=== PATIENT | female | born 2005 | race Caucasian/White ===

== ENCOUNTER 2025-01-24 04:02 | Emergency (ER) | payer OTHER, SELFPAY ==
[2025-01-24 04:03] VITALS: BP 123/89; PULSE 71; RESP 18; TEMP 36.7; O2SAT 97; BMI 20.9
--- NOTE | 2025-01-24 04:28 | EDNOTE_ITS ---
<Statement entered by Noris Munoz MD - 01/24/25 18:39> As co-signing physician, I was present and available for consult prn. I concur with the plan and care as documented by the midlevel provider. Nausea/Vomit./Diarrhea-RME/HPI General Chief complaint: General Adult/Misc Complain Stated complaint: BODYACHES, VOMITING Z2CORIS Time Seen by Provider: 01/24/25 04:25 Arrival date/time: 01/24/25 04:02 19F with history of fibromyalgia, Ariana-Danlos, and POTS presents to ED with several hours of heart palps, not feeling well, and some N/V. Patient denies URI symptoms. Limitations: no limitations Related Data Allergies Allergy/AdvReac Type Severity Reaction Status Date / Time No Known Allergies Allergy Verified 01/24/25 04:04 Review of Systems Review of Systems Systems Reviewed: All systems reviewed, normal except as documented Constitutional Constitutional: Reports system reviewed and no additional complaints, except as documented, Denies fever(s) and Denies headache(s) ENT Ears, Nose, Mouth, and Throat: Denies disequilibrium and Denies headache(s) Cardiovascular Cardiovascular: Reports system reviewed and no additional complaints, except as documented, Reports as per HPI, Denies chest pain, Denies dyspnea and Reports palpitations Respiratory Respiratory: Reports system reviewed and no additional complaints, except as documented, Denies cough and Denies dyspnea Gastrointestinal Gastrointestinal: Reports system reviewed and no additional complaints, except as documented, Reports as per HPI, Denies abdominal pain, Reports nausea and Reports vomiting Neurologic Neurologic: Reports system reviewed and no additional complaints, except as documented, Denies confusion, Denies disequilibrium and Denies headache(s) Psychiatric Psychiatric: Denies confusion Endocrine Endocrine: Reports palpitations Past Medical History Social History SMOKING STATUS: Former smoker ED Exam General Limitations: Present no limitations General appearance: Present alert and in no apparent distress Head Head exam: Present atraumatic Eye Eye exam: Present normal appearance, PERRL and EOMI ENT ENT exam: Present normal exam, normal oropharynx and mucous membranes moist Neck Neck exam: Present normal inspection, full ROM and trachea midline Chest Chest inspection: Present normal inspection and symmetric chest wall rise Respiratory Respiratory exam: Present normal lung sounds bilaterally Cardiovascular Cardiovascular exam: Present regular rate, normal rhythm and normal heart sounds Abdominal Exam Abdominal exam: Present soft and normal bowel sounds Extremities Exam Extremities exam: Present normal inspection and full ROM Back Exam Back exam: Present normal inspection and full ROM Neurological Exam Neurological exam: Present alert, oriented X3 and CN II-XII intact Psychiatric Psychiatric exam: Present normal affect and normal mood Skin Skin exam: Present warm, dry, intact and normal color Course Quality Measures none Orders Category Date Time Status Bedside Influenza A&B Antigen Test NOW Care 01/24/25 04:03 Completed Drug Screen,Urine Stat Lab 01/24/25 04:26 Ordered HCG Qualitative,Urine Stat Lab 01/24/25 04:26 Ordered DiphenhydrAMINE [Benadryl] Med 01/24/25 04:26 Discontinued 25 mg PO X1 ONE Metoclopramide [Reglan] Med 01/24/25 04:26 Discontinued 10 mg PO X1 ONE Vital Signs Vital signs: Vital Signs Temperature 98.0 F 01/24/25 04:03 Pulse Rate 71 01/24/25 04:03 Respiratory Rate 18 01/24/25 04:03 Blood Pressure 123/89 H 01/24/25 04:03 Pulse Oximetry (%) 97 01/24/25 04:03 Oxygen Delivery Method Room Air 01/24/25 04:03 O2 at 97% on RA and WNLs Nausea/Vomiting/Diarrhea MDM Narrative MDM Narrative:: 19F with history of fibromyalgia, Ariana-Danlos, and POTS presents to ED with several hours of heart palps, not feeling well, and some N/V. Patient denies URI symptoms. Physical exam reveals clear ENT and lungs. RRR. Patient is afebrile, calm, and alert. Swabs neg. PO challenge passed and patient felt better. Patient did not want to wait for HCG results and will call medical records. Patient data External records reviewed:: [facility] previous records Clinical information provided by:: patient Social determinants that could affect healthcare access:: none Patient has the following chronic illnesses:: fibromyalgia, Ariana-Danlos, and POTS How is presenting disease/condition affected by chronic disease/condition?: caused by Evaluation data The following diagnostics were reviewed and interpreted by me:: lab results Lab and/or radiology exams considered but not ordered:: ordered Interpretation Summary: above Medications / Prescriptions Medications / Prescriptions considered but not ordered:: ordered Medication administrations:: Medication Administration History Discontinued Medications Diphenhydramine HCl (Diphenhydramine 25 Mg Capsule) 25 mg PO X1 ONE Stop: 01/24/25 04:27 Last Admin: 01/24/25 04:30 Dose: 25 mg Documented By: MENDEL Metoclopramide HCl (Metoclopramide 5 Mg Tablet) 10 mg PO X1 ONE Stop: 01/24/25 04:27 Last Admin: 01/24/25 04:30 Dose: 10 mg Documented By: MENDEL above Consultations Consultation(s) initiated? (list below): No Diagnosis Nausea Differential Diagnosis: traveler's diarrhea, food poisoning, gastroenteritis, clostridium difficile infection, drug-induced nausea and vomiting, dehydration and other (N/V) Most likely diagnosis given after review of the tests above:: N/V Admission Indicated Admission indicated?: not indicated Admission Request Was there a request for admission?: No Disposition Plan Disposition Plan: Discharge Discharge Attestation Discharge Attestation: The patient and all family members were given an opportunity to ask questions and understood the discharge instructions. Discharge instructions specifically effects, indications for sooner follow up or return to the emergency department, and the expected course of current diagnosis. Patient condition: Stable Discharge Plan Plan Patient Disposition: HOME (Self Care) Disposition Comment: Stable Prescriptions/Referrals Referrals: Temporary Provider,ED [Physician] - In 1 week Problem List Clinical Impression: Nausea and vomiting Patient/Caregiver Discharge Instructions Education Materials: ED Vomiting (Adult) Additional Instructions: Please follow-up with PCP within 24-48 hours and return immediately if symptoms worsen. Print Language: Latvian Stand Alone Forms: Patient Portal Info Letter SAMINA/MARIE Supervising Physician YADY Supervising Physician: Dr. Munoz
[2025-01-24] MEDS: METOCLOPRAMIDE 5 MG TABLET 10 MG PO (04:30)
[2025-01-24] MEDS: DiphenhydrAMINE 25 MG CAPSULE PO (04:30)
[2025-01-24 05:33] VITALS: BP 103/61; PULSE 70; RESP 17; TEMP 36.7; O2SAT 100
== END 2025-01-24 05:38 | disposition home or self-care (01) ==
PROVIDERS: Emergency Provider Emergency Medicine
DX: R11.2 Nausea with vomiting, unspecified (principal)
CPT/HCPCS: 80307; 81025; 87400; 99283; A9270